=== PATIENT | male | born 1955 | race Caucasian/White ===

== ENCOUNTER 2019-03-07 06:27 | Day surgery (SDC) | payer MEDICARE ==
[2019-03-07 06:55] VITALS: BMI 27.0
[2019-03-07] MEDS ORDERED: Propofol 10 mg/ml Inj (20 ML) ONE (08:46)
[2019-03-07] MEDS ORDERED: Lactated Ringer's 500 ML IV ONE ×2 (08:47)
--- NOTE | 2019-03-07 08:50 | CP.SDSHP ---
Same Day Surgery H & P - History Proposed Procedure: colonoscopy Pre-Op Diagnosis: screening - Previous Medical/Surgical History Comments: cholesterol, diverticulosis Previous Surgical History: wrist. hernia - Allergies Allergies: Allergies No Known Allergies Allergy (Verified 06/13/13 10:20) - Current Medications Current Medications: reveiewed, per reconciliation - Physical Exam General Appearance: wdwn nad Vital Signs: Vital Signs 03/07/19 07:01 Temperature 97 F L Pulse Rate 66 Respiratory 17 Rate Blood Pressure 127/72 O2 Sat by Pulse 100 Oximetry Mental Status: Alert & Oriented x3 Heart: WNL Lungs: WNL GI: WNL - {Optional Preform as Required} Abdomen: WNL - Impression Impression: screening exam Pt. Evaluated Today:Candidate for Anesthesia & Procedure: Yes - Date & Time Date: 03/07/19 Time: 08:50 Short Stay Discharge - Short Stay Discharge Admitting Diagnosis/Reason for Visit: SCREENING Disposition: HOME/ ROUTINE
[2019-03-07 09:37] VITALS: TEMP 98
[2019-03-07 10:47] VITALS: BP 115/70; PULSE 75; RESP 20; O2SAT 99
== END 2019-03-07 10:45 | disposition home or self-care (01) ==
LOC: C.ENDO 06:27
PROVIDERS: ATTEND Internal Medicine Gastroenterology
DX: Z12.11 Encounter for screening for malignant neoplasm of colon (principal); D12.3 Benign neoplasm of transverse colon; K64.8 Other hemorrhoids; K57.30 Diverticulosis of large intestine without perforation or abscess without bleeding
CPT/HCPCS: 45380; 88305; J2704; J7120